=== PATIENT | female | born 2000 | race Caucasian/White ===

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

== ENCOUNTER → 2023-10-15 09:18 | Outpatient (BNVA) | payer OTHER, SELFPAY | PROVIDERS: Family Provider General Practice; PCP Family Medicine; Visit Provider Family Medicine | DX: L02.91 Cutaneous abscess, unspecified (principal); Z30.42 Encounter for surveillance of injectable contraceptive | CPT/HCPCS: 87070; 87077; 87184 ==